=== PATIENT | male | born 1990 | race Caucasian/White ===

== ENCOUNTER 2018-01-16 18:47 | Emergency (ER) | payer SELFPAY ==
[2018-01-16] MEDS ORDERED: Lidocaine 1% 50 ML MDV INJECT ONE (19:18)
--- NOTE | 2018-01-16 19:22 | EDM.PDOC ---
ED HPI GENERAL MEDICAL PROBLEM - General Chief Complaint: Laceration Stated Complaint: CUT ON LIP Time Seen by Provider: 01/16/18 19:02 Source of Information: Reports: Patient, RN Notes Reviewed - History of Present Illness INITIAL COMMENTS - FREE TEXT/NARRATIVE: 27 year old male suffered lac injury to R upper and lower mouth playing softball , soft ball hit mouth instead of catching with glove. Last DT about 5 yrs ago. R upper teeth mildly sore but not loose. Lip Pain Score (Numeric/FACES): 6 - Related Data Allergies Allergy/AdvReac Type Severity Reaction Status Date / Time No Known Allergies Allergy Verified 01/16/18 19:00 Home Meds: Home Meds . [No Known Home Meds] 01/16/18 [History] Past Medical History - Past Health History Medical/Surgical History: Denies Medical/Surgical History Social & Family History - Tobacco Use Smoking Status *Q: Current Every Day Smoker Years of Tobacco use: 7 Packs/Tins Daily: 1 - Caffeine Use Caffeine Use: Reports: Coffee - Recreational Drug Use Recreational Drug Use: No ED ROS GENERAL - Review of Systems Review Of Systems: See Below Constitutional: Reports: No Symptoms HEENT: Reports: Other (lac injuries R mouth) Respiratory: Denies: Shortness of Breath Cardiovascular: Denies: Chest Pain, Lightheadedness GI/Abdominal: Denies: Nausea, Vomiting Musculoskeletal: Reports: No Symptoms Neurological: Denies: Headache, Numbness, Tingling ED EXAM, SKIN/RASH Exam: See Below General Appearance: Alert, No Apparent Distress Eye Exam: Bilateral Eye: PERRL Ears: Normal External Exam Nose: Normal Inspection Throat/Mouth: Normal Teeth (teeth are not loose or out of position), Other (2 cm R upper inner lip, mod deep, gaping, 1 .5 cm lac R lower inner lip, deep, slightly gaping) Head: Facial Swelling (R mouth) Neck: Supple Respiratory/Chest: No Respiratory Distress Extremities: Normal Inspection Neurological: Alert, Oriented, No Motor/Sensory Deficits Skin: Warm, Dry, Normal Color ED SKIN PROCEDURES - Laceration/Wound Repair Right Mouth Lac/Wound length In cm: 2 Appearance: Irregular Distal NVT: Neuro & Vascular Intact Anesthetic Type: Local Local Anesthesia - Lidocaine (Xylocaine): 1% Plain Suture Size: 4-0 # of Sutures: 6 Suture Type: Other (vicryl) Course - Vital Signs Last Recorded V/S: Last Vital Signs Temp 99.6 F 01/16/18 18:58 Pulse 80 01/16/18 18:58 Resp 18 01/16/18 18:58 BP 141/85 H 01/16/18 18:58 Pulse Ox 94 L 01/16/18 18:58 - Orders/Labs/Meds Meds: Medications Discontinued Medications Generic Name Dose Route Start Last Admin Trade Name Allen PRN Reason Stop Dose Admin Lidocaine HCl 50 ml 01/16/18 19:18 01/16/18 19:35 Xylocaine 1% INJECT 01/16/18 19:19 50 ml ONETIME ONE Administration - Re-Assessments/Exams Free Text/Narrative Re-Assessment/Exam: 01/16/18 20:37 2nd lac R lower lip, 1.5 cm, mod deep, gaping, anesth 1% lidocaine, 3 4-0 vicryl sutures Departure - Departure Time of Disposition: 20:16 Disposition: Home, Self-Care 01 Condition: Fair Clinical Impression: Laceration of mouth Qualifiers: Encounter type: initial encounter Qualified Code(s): S01.512A - Laceration without foreign body of oral cavity, initial encounter Laceration of lip Qualifiers: Encounter type: initial encounter Qualified Code(s): S01.511A - Laceration without foreign body of lip, initial encounter - Discharge Information Instructions: Laceration Care, Adult Referrals: PCP,None [Primary Care Provider] - Forms: ED Department Discharge Additional Instructions: laceration care instr., avoid salty foods, ice packs and elevation for swelling. these stitches will eventually disolve and fall out, however you will likely prefer to have them removed in about 8 to 9 days, there is no charge if you choose to have those removed at our [facility]. Call [phone] for appt.
== END 2018-01-16 20:27 | disposition home or self-care (01) ==
LOC: JD.ED 18:47
DX: S01.511A Laceration without foreign body of lip, initial encounter (principal); R22.0 Localized swelling, mass and lump, head; W21.07XA Struck by softball, initial encounter
CPT/HCPCS: 12011; 99282; 99283-25